=== PATIENT | male | born 1985 | race Caucasian/White ===

== ENCOUNTER 2021-04-01 11:42 | Emergency (ER) | payer SELFPAY ==
[~2021-04-01] VITALS: Ht 180.3 cm; Wt 82.3 kg
[2021-04-01 11:53] VITALS: BP 131/88
== END 2021-04-01 15:00 | disposition home or self-care (01) ==
LOC: ER 11:43
DX: M79.642 Pain in left hand (principal); R20.0 Anesthesia of skin
CPT/HCPCS: 73130; 99283

== ENCOUNTER 2021-04-10 00:32 | Emergency (ER) | payer SELFPAY ==
[~2021-04-10] VITALS: Ht 180.3 cm; Wt 79.5 kg
[2021-04-10 00:42] VITALS: BP 148/81
--- NOTE | 2021-04-10 01:23 | NUR ---
HE IS HERE FOR A RAPID COVID ONLY BECAUSE HIS MOTHER IS BEING ADMITTED AND A RESULT IN THE PAST 72 HRS IS REQUIRED FOR VISITATION.
== END 2021-04-10 01:59 | disposition home or self-care (01) ==
LOC: ER 00:33
DX: Z20.822 Contact with and (suspected) exposure to COVID-19 (principal); F17.200 Nicotine dependence, unspecified, uncomplicated; Z72.89 Other problems related to lifestyle
CPT/HCPCS: 87635; 99283; C9803